=== PATIENT | male | born 1950 | race Caucasian/White ===

== ENCOUNTER 2020-09-29 14:54 | Emergency (ER) | payer OTHER, MEDICARE, SELFPAY ==
[2020-09-29 16:42] VITALS: BP 150/92; PULSE 80; RESP 17; TEMP 36.6; O2SAT 99; BMI 25.8
--- NOTE | 2020-09-29 17:48 | PC.NURSE ---
PT STATES IS GOING TO LEAVE. HE DOES NOT WANT TO WAIT. I AM FINE BUT I JUST WANT SOMONE TO TELL ME THAT. PT ENCOURAGED TO STAY. RYLIE NOTIFIED. PT WILLING TO WAIT FOR 5 MINUTES OTHERWISE WILL LEAVE.
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
== END 2020-09-29 19:00 | disposition home or self-care (01) ==
PROVIDERS: Emergency Provider Emergency Medicine
DX: S80.212A Abrasion, left knee, initial encounter (principal); M25.562 Pain in left knee; M54.5 Low back pain; V43.52XA Car driver injured in collision with other type car in traffic accident, initial encounter; Y93.9 Activity, unspecified; Y92.410 Unspecified street and highway as the place of occurrence of the external cause; Y99.9 Unspecified external cause status
CPT/HCPCS: 99283; 99284

== ENCOUNTER 2022-10-23 14:13 | Emergency (ER) | payer MEDICARE, SELFPAY ==
[2022-10-23 14:17] VITALS: BP 127/96; PULSE 92; RESP 18; TEMP 36.9; O2SAT 96; BMI 25.8
--- NOTE | 2022-10-23 14:20 | ED.SKABFB ---
HPI - Skin/Abscess/Foreign Bdy General Chief complaint: Eye Problems <Mavis Smith NP - Last Filed: 10/23/22 14:22> Stated complaint: Eye swelling/Shingles? <Mavis Smith NP - Last Filed: 10/23/22 14:22> Time Seen by Provider: 10/23/22 16:12 <Mavis Smith NP - Last Filed: 10/23/22 14:22> Source: patient <MERRITT Rizzo - Last Filed: 10/23/22 18:39> Mode of arrival: ambulatory <MERRITT Rizzo Last Filed: 10/23/22 18:39> Limitations: no limitations <MERRITT Rizzo Last Filed: 10/23/22 18:39> History of Present Illness HPI narrative: 730 minutes presents to ED for 4 days of warmth rash on forehead, scalp, and right side of face. Patient states having chills. Denies any eye pain or change in vision. Patient states he has a small scab back of his hand on occipital which she scratched and then the redness spread. <MERRITT Rizzo Last Filed: 10/23/22 18:39> Related Data Home medications: Previous Rx's Medication Instructions Recorded cephalexin 500 mg capsule 500 mg PO QID 7 days #28 caps 10/23/22 doxycycline hyclate 100 mg capsule 100 mg PO BID 7 days #14 caps 10/23/22 <Mavis Smith NP - Last Filed: 10/23/22 14:22> Allergies/Adverse reactions: Allergies Allergy/AdvReac Type Severity Reaction Status Date / Time aspirin [ASA] Allergy Mild Hives Verified 09/29/20 16:40 ibuprofen Allergy Hives Verified 09/29/20 16:41 <Mavis Smith NP - Last Filed: 10/23/22 14:22> Review of Systems Review of Systems: Hot rash on face <MERRITT Rizzo Last Filed: 10/23/22 18:39> Yes all other systems are reviewed and are negative <MERRITT Rizzo Last Filed: 10/23/22 18:39> PMFSH Past Medical History Surgical History: Surgical History History of bladder surgery <Mavis Smith NP - Last Filed: 10/23/22 14:22> Social History Social History: Social History Alcohol intake: unknown Advance Directives: No Advance Directives Information Provided: Yes <Mavis Smith NP - Last Filed: 10/23/22 14:22> Physical Exam Vital Signs: Vital Signs: Last Vital Signs Temp 98.5 F 10/23/22 14:17 Pulse 92 10/23/22 14:17 Resp 18 10/23/22 14:17 BP 127/96 H 10/23/22 14:17 Pulse Ox 96 10/23/22 14:17 O2 Del Method 10/23/22 14:17 BMI result Body Mass Index 25.8 <Mavis Smith NP - Last Filed: 10/23/22 14:22> Vital Signs: Last Vital Signs Temp 98.5 F 10/23/22 14:17 Pulse 92 10/23/22 14:17 Resp 18 10/23/22 14:17 BP 127/96 H 10/23/22 14:17 Pulse Ox 96 10/23/22 14:17 O2 Del Method 10/23/22 14:17 BMI result Body Mass Index 25.8 <MERRITT Rizzo - Last Filed: 10/23/22 18:39> Const: General: cooperative, healthy appearing, comfortable, no acute distress, well developed and alert <MERRITT Rizzo - Last Filed: 10/23/22 18:39> Orientation/consciousness: oriented to person, oriented to place, oriented to time and patient oriented x3 <MERRITT Rizzo - Last Filed: 10/23/22 18:39> HEENT: Other: Warm to touch. Patient has complete movement of eye muscles in all directions with no pain in both eyes. <MERRITT Rizzo - Last Filed: 10/23/22 18:39> Eyes: Other: Right: Lower eyelid swelling. Patient's complete movement of the eye muscles without any pain. Negative any visual changes Left eye normal <MERRITT Rizzo - Last Filed: 10/23/22 18:39> Neck: Neck: Yes normal visual inspection, Yes full ROM, Yes no lymphadenopathy, Yes no meningeal signs, Yes trachea midline, Yes supple, No anterior neck swelling and No tender <MERRITT Rizzo Last Filed: 10/23/22 18:39> Chest: Chest palpation & inspection: normal inspection of the chest and normal palpation of entire chest wall <MERRITT Rizzo Last Filed: 10/23/22 18:39> Resp: Effort & Inspection: normal respiratory effort and able to speak in complete sentences <MERRITT Rizzo Last Filed: 10/23/22 18:39> Auscultation: clear to auscultation bilaterally <MERRITT Rizzo Last Filed: 10/23/22 18:39> Cardio: Jugular venous distension: no JVD <MERRITT Rizzo Last Filed: 10/23/22 18:39> Heart sounds: S1 normal heart sound present and S2 normal heart sound present <MERRITT Rizzo Last Filed: 10/23/22 18:39> GI: Inspection: Yes normal to inspection and No abdominal wall ecchymosis <MERRITT Rizzo Last Filed: 10/23/22 18:39> Palpation (GI): Soft to palpation, not firm, nontender, no guarding and not rigid <MERRITT Rizzo Last Filed: 10/23/22 18:39> : General: No CVA tenderness and Yes no CVA tenderness <MERRITT Rizzo Last Filed: 10/23/22 18:39> Back/Spine/Pelvis: Back: no CVA tenderness, No CVA tenderness and No back tenderness <MERRITT Rizzo Last Filed: 10/23/22 18:39> Skin: General skin exam: no rashes or lesions noted and elasticity normal <MERRITT Rizzo Last Filed: 10/23/22 18:39> Neuro: Other: Negative for any neuro deficits <MERRITT Rizzo Last Filed: 10/23/22 18:39> General: oriented to person, oriented to place, oriented to time, patient oriented x3, gait normal, moves all extremities, Normal light touch and pain sensation and no meningeal signs <MERRITT Rizzo Last Filed: 10/23/22 18:39> Cranial nerves: Yes CN's II-XII intact bilaterally and Yes Facial sensation intact/muscles of mastication intact <MERRITT Rizzo - Last Filed: 10/23/22 18:39> Extrem: General: Yes normal to inspection and Yes full ROM <MERRITT Rizzo - Last Filed: 10/23/22 18:39> Psych: Appearance: grossly normal, well kempt and not disheveled <MERRITT Rizzo - Last Filed: 10/23/22 18:39> Course Course Course Narrative: This is a rapid medical exam. Deferred additional HPI, ROS, PE to primary provider. 72 yo male here with facial rash. Monday night developed flu like symptoms, burning over face/head then rash developed, worsening and spreading over the face down to the right eye now. No vision changes. VSS <Mavis Smith NP - Last Filed: 10/23/22 14:22> Reevaluation(s) Reevaluation #1: History physical exam does not indicate shingles. History physical exam indicate facial cellulitis. History physical exam does not indicate over cellulitis. Jasbir Higgins also evaluated patient recommend IV antibiotics and discharged with p.o. antibiotics <MERRITT Rizzo - Last Filed: 10/23/22 18:39> Time: 17:19 <MERRITT Rizzo - Last Filed: 10/23/22 18:39> Medications Administered Discontinued Medications Generic Name Dose Route Start Last Admin Trade Name Freq PRN Reason Stop Dose Admin Ceftriaxone Sodium 1 gm/ 50 mls @ 100 mls/hr 10/23/22 16:34 10/23/22 17:43 Sodium Chloride IV 10/23/22 17:03 Infused ONCE ONE Infusion <Mavis Smith NP - Last Filed: 10/23/22 14:22> Medications Administered Discontinued Medications Generic Name Dose Route Start Last Admin Trade Name Freq PRN Reason Stop Dose Admin Ceftriaxone Sodium 1 gm/ 50 mls @ 100 mls/hr 10/23/22 16:34 10/23/22 17:43 Sodium Chloride IV 10/23/22 17:03 Infused ONCE ONE Infusion <MERRITT Rizzo Last Filed: 10/23/22 18:39> MDM - Skin/Abscess/Foreign Bdy MDM Narrative Medical decision making narrative: Cellulitis <MERRITT Rizzo - Last Filed: 10/23/22 18:39> Lab Data Result diagrams: : 10/23/22 14:53 10/23/22 14:53 <Mavis Smith NP - Last Filed: 10/23/22 14:22> Labs: Lab Results 10/23/22 10/23/22 10/23/22 Range/Units 14:53 14:53 14:53 WBC 9.2 (4.8-10.8) X10*3/uL RBC 4.82 (4.60-5.80) X10*6/uL Hgb 13.9 L (14.0-18.0) g/dl Hct 41.1 L (42.0-52.0) % MCV 85.3 (80.0-98.0) fL MCH 28.8 (27.0-33.0) pg MCHC 33.8 (31.0-36.0) g/dl RDW 12.4 (11.0-16.0) % Plt Count 168 (160-400) X10*3/uL MPV 10.0 (9.4-12.4) fL Immature Gran % (Auto) 0.4 (0.0-0.4) % Neut % (Auto) 78.0 H (45-73) % Lymph % (Auto) 10.3 L (20-40) % Winkler % (Auto) 10.2 (2-11) % Eos % (Auto) 0.8 (0-4) % Baso % (Auto) 0.3 (0-2) % Lymph # (Auto) 0.9 L (1.2-4.9) X10*3/uL Winkler # (Auto) 0.9 (0.1-1.2) X10*3/uL Eos # (Auto) 0.1 (0.0-0.4) X10*3/uL Baso # (Auto) 0.0 (0.0-0.2) X10*3/uL Abs Immat Gran (auto) 0.04 H (0.00-0.03) X10*3/uL Absolute Neuts (auto) 7.1 (2.0-8.3) x10*3/uL Absolute Nucleated RBC 0.000 (0.0-0.012) X10*3/uL Nucleated RBC % (auto) 0.0 (0.0-0.2) /100WBC ESR 36 H (0-15) MM/HR Sodium 133 L (135-145) mmol/L Potassium 3.9 (3.3-5.1) mmol/L Chloride 101 (96-108) mmol/L Carbon Dioxide 27 (22-29) mmol/L Anion Gap 9 L (12-20) BUN 18 H (9-16) mg/dL Creatinine 1.36 (0.5-1.4) mg/dL Estim Creat Clear Calc 43.6 Estimated GFR 51 Random Glucose 129 H (60-115) mg/dL Lactic Acid (0.5-2.0) mmol/L Calcium 8.7 (8.4-10.2) mg/dL Total Bilirubin 0.8 (0.0-1.0) mg/dL Direct Bilirubin 0.3 (0.0-0.5) mg/dL AST 48 H (5-37) U/L ALT 75 H (0-40) U/L Alkaline Phosphatase 72 (39-117) U/L C-Reactive Protein 12.91 H (< or = 0.50) mg/dL Total Protein 6.3 L (6.5-8.0) g/dL Albumin 3.6 (3.5-5.0) g/dL COVID-19 ([facility]) (Negative) COVID-19 Clin Com 10/23/22 10/23/22 Range/Units 14:53 16:52 WBC (4.8-10.8) X10*3/uL RBC (4.60-5.80) X10*6/uL Hgb (14.0-18.0) g/dl Hct (42.0-52.0) % MCV (80.0-98.0) fL MCH (27.0-33.0) pg MCHC (31.0-36.0) g/dl RDW (11.0-16.0) % Plt Count (160-400) X10*3/uL MPV (9.4-12.4) fL Immature Gran % (Auto) (0.0-0.4) % Neut % (Auto) (45-73) % Lymph % (Auto) (20-40) % Winkler % (Auto) (2-11) % Eos % (Auto) (0-4) % Baso % (Auto) (0-2) % Lymph # (Auto) (1.2-4.9) X10*3/uL Winkler # (Auto) (0.1-1.2) X10*3/uL Eos # (Auto) (0.0-0.4) X10*3/uL Baso # (Auto) (0.0-0.2) X10*3/uL Abs Immat Gran (auto) (0.00-0.03) X10*3/uL Absolute Neuts (auto) (2.0-8.3) x10*3/uL Absolute Nucleated RBC (0.0-0.012) X10*3/uL Nucleated RBC % (auto) (0.0-0.2) /100WBC ESR (0-15) MM/HR Sodium (135-145) mmol/L Potassium (3.3-5.1) mmol/L Chloride (96-108) mmol/L Carbon Dioxide (22-29) mmol/L Anion Gap (12-20) BUN (9-16) mg/dL Creatinine (0.5-1.4) mg/dL Estim Creat Clear Calc Estimated GFR Random Glucose (60-115) mg/dL Lactic Acid 1.1 (0.5-2.0) mmol/L Calcium (8.4-10.2) mg/dL Total Bilirubin (0.0-1.0) mg/dL Direct Bilirubin (0.0-0.5) mg/dL AST (5-37) U/L ALT (0-40) U/L Alkaline Phosphatase (39-117) U/L C-Reactive Protein (< or = 0.50) mg/dL Total Protein (6.5-8.0) g/dL Albumin (3.5-5.0) g/dL COVID-19 ([facility]) Negative (Negative) COVID-19 Clin Com See Note <Mavis Smith NP - Last Filed: 10/23/22 14:22> Lab Results 10/23/22 10/23/22 10/23/22 Range/Units 14:53 14:53 14:53 WBC 9.2 (4.8-10.8) X10*3/uL RBC 4.82 (4.60-5.80) X10*6/uL Hgb 13.9 L (14.0-18.0) g/dl Hct 41.1 L (42.0-52.0) % MCV 85.3 (80.0-98.0) fL MCH 28.8 (27.0-33.0) pg MCHC 33.8 (31.0-36.0) g/dl RDW 12.4 (11.0-16.0) % Plt Count 168 (160-400) X10*3/uL MPV 10.0 (9.4-12.4) fL Immature Gran % (Auto) 0.4 (0.0-0.4) % Neut % (Auto) 78.0 H (45-73) % Lymph % (Auto) 10.3 L (20-40) % Winkler % (Auto) 10.2 (2-11) % Eos % (Auto) 0.8 (0-4) % Baso % (Auto) 0.3 (0-2) % Lymph # (Auto) 0.9 L (1.2-4.9) X10*3/uL Winkler # (Auto) 0.9 (0.1-1.2) X10*3/uL Eos # (Auto) 0.1 (0.0-0.4) X10*3/uL Baso # (Auto) 0.0 (0.0-0.2) X10*3/uL Abs Immat Gran (auto) 0.04 H (0.00-0.03) X10*3/uL Absolute Neuts (auto) 7.1 (2.0-8.3) x10*3/uL Absolute Nucleated RBC 0.000 (0.0-0.012) X10*3/uL Nucleated RBC % (auto) 0.0 (0.0-0.2) /100WBC ESR 36 H (0-15) MM/HR Sodium 133 L (135-145) mmol/L Potassium 3.9 (3.3-5.1) mmol/L Chloride 101 (96-108) mmol/L Carbon Dioxide 27 (22-29) mmol/L Anion Gap 9 L (12-20) BUN 18 H (9-16) mg/dL Creatinine 1.36 (0.5-1.4) mg/dL Estim Creat Clear Calc 43.6 Estimated GFR 51 Random Glucose 129 H (60-115) mg/dL Lactic Acid (0.5-2.0) mmol/L Calcium 8.7 (8.4-10.2) mg/dL Total Bilirubin 0.8 (0.0-1.0) mg/dL Direct Bilirubin 0.3 (0.0-0.5) mg/dL AST 48 H (5-37) U/L ALT 75 H (0-40) U/L Alkaline Phosphatase 72 (39-117) U/L C-Reactive Protein 12.91 H (< or = 0.50) mg/dL Total Protein 6.3 L (6.5-8.0) g/dL Albumin 3.6 (3.5-5.0) g/dL COVID-19 ([facility]) (Negative) COVID-19 Clin Com 10/23/22 10/23/22 Range/Units 14:53 16:52 WBC (4.8-10.8) X10*3/uL RBC (4.60-5.80) X10*6/uL Hgb (14.0-18.0) g/dl Hct (42.0-52.0) % MCV (80.0-98.0) fL MCH (27.0-33.0) pg MCHC (31.0-36.0) g/dl RDW (11.0-16.0) % Plt Count (160-400) X10*3/uL MPV (9.4-12.4) fL Immature Gran % (Auto) (0.0-0.4) % Neut % (Auto) (45-73) % Lymph % (Auto) (20-40) % Winkler % (Auto) (2-11) % Eos % (Auto) (0-4) % Baso % (Auto) (0-2) % Lymph # (Auto) (1.2-4.9) X10*3/uL Winkler # (Auto) (0.1-1.2) X10*3/uL Eos # (Auto) (0.0-0.4) X10*3/uL Baso # (Auto) (0.0-0.2) X10*3/uL Abs Immat Gran (auto) (0.00-0.03) X10*3/uL Absolute Neuts (auto) (2.0-8.3) x10*3/uL Absolute Nucleated RBC (0.0-0.012) X10*3/uL Nucleated RBC % (auto) (0.0-0.2) /100WBC ESR (0-15) MM/HR Sodium (135-145) mmol/L Potassium (3.3-5.1) mmol/L Chloride (96-108) mmol/L Carbon Dioxide (22-29) mmol/L Anion Gap (12-20) BUN (9-16) mg/dL Creatinine (0.5-1.4) mg/dL Estim Creat Clear Calc Estimated GFR Random Glucose (60-115) mg/dL Lactic Acid 1.1 (0.5-2.0) mmol/L Calcium (8.4-10.2) mg/dL Total Bilirubin (0.0-1.0) mg/dL Direct Bilirubin (0.0-0.5) mg/dL AST (5-37) U/L ALT (0-40) U/L Alkaline Phosphatase (39-117) U/L C-Reactive Protein (< or = 0.50) mg/dL Total Protein (6.5-8.0) g/dL Albumin (3.5-5.0) g/dL COVID-19 ([facility]) Negative (Negative) COVID-19 Clin Com See Note <MERRITT Rizzo - Last Filed: 10/23/22 18:39> Discharge Plan Discharge Clinical Impression: Facial cellulitis <Mavis Smith NP - Last Filed: 10/23/22 14:22> Patient Disposition: Home, Self-Care <Mavis Smith NP - Last Filed: 10/23/22 14:22> Instructions: Cellulitis (ED) <Mavis Smith NP - Last Filed: 10/23/22 14:22> Additional Instructions: Return to the ED immediately worsening rash, fever, chills, eye pain, change in vision, neck swelling, headache, or any other concerning symptoms. Please follow-up primary care provider <Mavis Smith NP - Last Filed: 10/23/22 14:22> Prescriptions: New cephalexin 500 mg capsule 500 mg PO QID 7 Days Qty: 28 0RF doxycycline hyclate 100 mg capsule 100 mg PO BID 7 Days Qty: 14 0RF <Mavis Smith NP - Last Filed: 10/23/22 14:22> Interventions: ED Discharge Assessment Last Done: 10/23/22 18:23 <Mavis Smith NP - Last Filed: 10/23/22 14:22> Discharge Date/Time: 10/23/22 18:23 <Mavis Smith NP - Last Filed: 10/23/22 14:22> Print Language: Japanese <Mavis Smith NP - Last Filed: 10/23/22 14:22>
[2022-10-23 14:58] LABS: MANUAL DIFF FLAG NO
[2022-10-23 15:00] LABS: Basophils Percent Auto 0.3 % (0-2); Eosinophils Absolute Auto 0.1 X10*3/uL (0.0-0.4); Eosinophils Percent Auto 0.8 % (0-4); Hematocrit 41.1 % (42.0-52.0); Hemoglobin 13.9 g/dl (14.0-18.0); Imm Gran Abs Auto 0.04 X10*3/uL (0.00-0.03); Imm Gran Pct Auto 0.4 % (0.0-0.4); Lymphocytes Absolute Auto 0.9 X10*3/uL (1.2-4.9); Lymphocytes Percent Auto 10.3 % (20-40); Mean Corpuscular HGB Conc 33.8 g/dl (31.0-36.0); Mean Corpuscular Hemoglobin 28.8 pg (27.0-33.0); Mean Corpuscular Volume 85.3 fL (80.0-98.0); Monocytes Absolute Auto 0.9 X10*3/uL (0.1-1.2); Monocytes Percent Auto 10.2 % (2-11); Neutrophils Absolute Auto 7.1 x10*3/uL (2.0-8.3); Platelet Count 168 X10*3/uL (160-400); Red Blood Count 4.82 X10*6/uL (4.60-5.80); Red Cell Distribution Width 12.4 % (11.0-16.0); White Blood Count 9.2 X10*3/uL (4.8-10.8)
[2022-10-23 15:11] LABS: COVID-19 Test Negative (Negative); IDNOW Serial# BCCEAD1C
[2022-10-23 15:36] LABS: Alanine Aminotransferase 75 U/L (0-40); Albumin Level 3.6 g/dL (3.5-5.0); Alkaline Phosphatase 72 U/L (39-117); Anion Gap 9 (12-20); Aspartate Amino Transferase 48 U/L (5-37); Bilirubin Direct 0.3 mg/dL (0.0-0.5); Bilirubin Total 0.8 mg/dL (0.0-1.0); Blood Urea Nitrogen 18 mg/dL (9-16); C Reactive Protein 12.91 mg/dL (< or = 0.50); Calcium 8.7 mg/dL (8.4-10.2); Carbon Dioxide 27 mmol/L (22-29); Chloride 101 mmol/L (96-108); Creatinine Clr Calc Pharmacy 43.6; Erythrocyte Sedimentation Rate 36 MM/HR (0-15); Estimated Glomerular Filt Rate 51; Glucose Random 129 mg/dL (60-115); Potassium 3.9 mmol/L (3.3-5.1); Sodium 133 mmol/L (135-145); Total Protein 6.3 g/dL (6.5-8.0)
[2022-10-23] MEDS: cefTRIAXone sodium 1 GM in 0.9 % Sodium Chloride 50 ML IV (17:04)
--- NOTE | 2022-10-23 17:10 | PC.NURSE ---
20g iv placed in left antecubital- adm 1g rocephin per MAR- pt partner at bedside both updated on plan of care
[2022-10-23 17:12] LABS: Lactic Acid 1.1 mmol/L (0.5-2.0)
== END 2022-10-23 18:23 | disposition home or self-care (01) ==
PROVIDERS: Nurse Practitioner Family; Physician Assistant; Emergency Provider Internal Medicine
DX: L03.211 Cellulitis of face (principal); Z20.822 Contact with and (suspected) exposure to COVID-19; Z79.899 Other long term (current) drug therapy
CPT/HCPCS: 36415; 80048; 80076; 83605; 85025; 85652; 86140; 87040; 87635; 96374; 99284; J0696

== ENCOUNTER 2023-11-21 10:26 | Emergency (ER) | payer MEDICARE, SELFPAY ==
--- NOTE | ~2023-11-21 | CT_ITS ---
EXAMINATION: CT ABDOMEN AND PELVIS WITHOUT CONTRAST CLINICAL INFORMATION: Hematuria and left-sided flank pain. COMPARISON: None available. TECHNIQUE: Multidetector volumetric imaging was performed from the superior aspect of the liver through the pubic symphysis. Sagittal and coronal reformatted images were obtained on the technologist's workstation. This CT examination was performed using dose optimization techniques as appropriate, variously including the following: *Automated exposure control *Adjustment of mA and/or kV according to patient size (this includes techniques or standardized protocols for targeted exams where dose is matched to indication/reason for exam; i.e. extremities or head) *Use of iterative reconstruction technique DLP: 477 mGy-cm FINDINGS: LUNG BASES: No pulmonary consolidation or pleural effusion. HEPATOBILIARY: The liver has normal size, shape, and attenuation. Gallbladder has a single 2 cm peripherally calcified stone. No gallbladder wall thickening or pericholecystic fluid. No dilated bile ducts. PANCREAS: No edema, pancreatic ductal dilatation or mass. SPLEEN: Normal size. 0.7 cm hypodense focus in the posterior spleen could represent a cyst or hemangioma. ADRENAL GLANDS: Normal. RIGHT KIDNEY AND URETER: 3.2 cm simple cyst of the anterior mid kidney. No renal imaging follow-up is recommended for a simple cyst. No renal stones, hydronephrosis or perinephric edema. The ureter is unremarkable. LEFT KIDNEY AND URETER: No renal stones, hydronephrosis or perinephric edema. 1.5 cm simple cyst of the anterior upper pole. A simple cyst of the lower pole measures up to 10.5 cm maximum dimension. No renal imaging follow-up is recommended for simple cysts, if asymptomatic. The ureter is unremarkable. BLADDER: The bladder is underdistended, suboptimally evaluated. 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 Also, there is nonspecific intermediate attenuation in the posterior right bladder. In a patient with history of hematuria, this could represent clot within the bladder lumen although underlying urothelial polyp is not excluded. Consider whether either cystoscopy or CT urography evaluation is warranted for further evaluation. BOWEL AND PERITONEUM: Stomach is underdistended and grossly normal. No dilated bowel loops. The appendix is normal. Multiple diverticula of the colon, particularly descending and sigmoid colon, without evidence of diverticulitis. No abdominal free fluid or free air. ABDOMINAL WALL: Small fat-containing right inguinal hernia. VASCULATURE: There is atherosclerotic calcification of the abdominal aorta and iliac arteries without aneurysm. The infrarenal abdominal aorta measures up to 2.3 cm AP diameter. LYMPH NODES: No pathologic sized lymph nodes in the abdomen or pelvis. No inguinal lymphadenopathy. PELVIC VISCERA: Mildly enlarged prostate gland measures approximately 4.8 x 3.6 x 4.8 cm. MUSCULOSKELETAL: Mild facet arthropathy at L4-L5 and moderate facet arthropathy at L5-S1. Degenerative disc disease at L5-S1 (as manifest by severe loss of disc height, endplate sclerosis, osteophytosis and vacuum disc phenomenon). There are osteophytes that encroach upon the bilateral neural foramina at L5-S1. Correlate for any signs/symptoms of L5 radiculopathy. CT/CT abdomen pelvis wo IV con IMPRESSION: * No evidence of renal calculi or hydroureteronephrosis. * Simple cysts of both kidneys, largest on the left measuring up to 10.5 cm. * Large prostate gland measures approximately 4.8 x 3.6 x 4.8 cm. 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 The area of intermediate attenuation in the posterior right bladder is not well characterized, possibly representing clot or a polypoid urothelial lesion. Given history of hematuria, consider correlation with either cystoscopy or CT urography. * Cholelithiasis. * Colonic diverticulosis without diverticulitis.
[2023-11-21 11:16] VITALS: BP 177/90; PULSE 82; RESP 18; TEMP 36.7; O2SAT 98; BMI 25.1
--- NOTE | 2023-11-21 11:16 | ED_ITS ---
HPI - Male Genitourinary General Chief complaint: Urogenital-Male Stated complaint: Blood in urine Related Data Previous Rx's Medication Instructions Recorded cephalexin 500 mg capsule 500 mg PO QID 7 days #28 caps 10/23/22 doxycycline hyclate 100 mg capsule 100 mg PO BID 7 days #14 caps 10/23/22 Allergies Allergy/AdvReac Type Severity Reaction Status Date / Time aspirin [ASA] Allergy Mild Hives Verified 09/29/20 16:40 ibuprofen Allergy Hives Verified 09/29/20 16:41 PMFSH Past Medical History Onset Date is defined in the Problem List Problems that require an onset date and time if occurred within 24 hrs of arrival to the ED Aortic Dissection and Rupture; Neurologic impairment; Cardiopulmonary Arrest; Endotracheal Intubation; Insertion or Replacement of Mechanical Circulatory Assist Device Surgical History History of bladder surgery Social History Social History Alcohol intake: unknown Advance Directives: No Advance Directives Information Provided: No Physical Exam 2 Vital Signs: Vital Signs: Last Vital Signs Temp 98.0 F 11/21/23 11:16 Pulse 82 11/21/23 11:16 Resp 18 11/21/23 11:16 BP 177/90 H 11/21/23 11:16 Pulse Ox 98 11/21/23 11:16 O2 Del Method Room Air 11/21/23 11:16 BMI result Body Mass Index 25.1 Course Course Course Narrative: This is an RME: Additional HPI, ROS, PE not included below will be deferred to primary provider. This is a [id number], hx of bladder growth that was removed several years ago, presenting to the ER with complaints of hematuria x 2 days. Reporting some left sided flank pain. No fevers, N/V. VSS. Further ER evaluation needed. Plan: Labs, UA, CT abd/pelvis Reevaluation(s) Reevaluation #1: pt eloped prior to completing treatment. Medical Decision Making Lab Data 11/21/23 12:15 11/21/23 12:15 Labs: Lab Results 11/21/23 Range/Units 12:15 WBC 8.4 (4.8-10.8) X10*3/uL RBC 4.94 (4.60-5.80) X10*6/uL Hgb 14.5 (14.0-18.0) g/dl Hct 42.5 (42.0-52.0) % MCV 86.0 (80.0-98.0) fL MCH 29.4 (27.0-33.0) pg MCHC 34.1 (31.0-36.0) g/dl RDW 12.8 (11.0-16.0) % Plt Count 196 (160-400) X10*3/uL MPV 9.7 (9.4-12.4) fL Immature Gran % (Auto) 0.4 (0.0-0.4) % Neut % (Auto) 83.9 H (45-73) % Lymph % (Auto) 8.7 L (20-40) % Atkinson % (Auto) 6.4 (2-11) % Eos % (Auto) 0.4 (0-4) % Baso % (Auto) 0.2 (0-2) % Lymph # (Auto) 0.7 L (1.2-4.9) X10*3/uL Atkinson # (Auto) 0.5 (0.1-1.2) X10*3/uL Eos # (Auto) 0.0 (0.0-0.4) X10*3/uL Baso # (Auto) 0.0 (0.0-0.2) X10*3/uL Abs Immat Gran (auto) 0.03 (0.00-0.03) X10*3/uL Absolute Neuts (auto) 7.1 (2.0-8.3) x10*3/uL Absolute Nucleated RBC 0.000 (0.0-0.012) X10*3/uL Nucleated RBC % (auto) 0.0 (0.0-0.2) /100WBC Sodium 141 (135-145) mmol/L Potassium 4.9 D (3.3-5.1) mmol/L Chloride 109 H (96-108) mmol/L Carbon Dioxide 23 (22-29) mmol/L Anion Gap 14 (12-20) BUN 15 (9-16) mg/dL Creatinine 1.23 (0.5-1.4) mg/dL Estim Creat Clear Calc 50.9 Estimated GFR 58 Random Glucose 98 (60-115) mg/dL Calcium 9.4 D (8.4-10.2) mg/dL Total Bilirubin 0.3 (0.0-1.0) mg/dL Direct Bilirubin 0.1 (0.0-0.5) mg/dL AST 20 (5-37) U/L ALT 13 (0-40) U/L Alkaline Phosphatase 51 (39-117) U/L Total Protein 7.7 (6.5-8.0) g/dL Albumin 4.5 (3.5-5.0) g/dL Lipase 27 (8-78) U/L Urine Color BROWN Urine Appearance Turbid Urine pH 6.5 (5.0-9.0) Ur Specific [place] 1.020 (1.005-1.025) Urine Protein 300 (3+) H (Neg-Trace) mg/dL Urine Glucose (UA) Negative (Negative) mg/dL Urine Ketones Trace (Negative) mg/dL Urine Blood Large (3+) H (Negative) Urine Nitrite Positive H (Negative) Ur Leukocyte Esterase Trace H (Negative) Urine RBC >20 H (0-2) /HPF Urine WBC 11-20 H (0-5) /HPF Ur Squamous Epith Cells 11-20 (0-2) /HPF Urine Bacteria None Seen (None Seen) Hyaline Casts 0-2 (0-2) /LPF Discharge Plan Discharge Clinical Impression: Hematuria Patient Disposition: Left W/O Completing Treatment Prescriptions: No Action cephalexin 500 mg capsule 500 mg PO QID 7 Days Qty: 28 0RF doxycycline hyclate 100 mg capsule 100 mg PO BID 7 Days Qty: 14 0RF Discharge Date/Time: 11/21/23 16:34
[2023-11-21 12:20] LABS: MANUAL DIFF FLAG NO
[2023-11-21 12:21] LABS: Basophils Percent Auto 0.2 % (0-2); Eosinophils Percent Auto 0.4 % (0-4); Hematocrit 42.5 % (42.0-52.0); Hemoglobin 14.5 g/dl (14.0-18.0); Imm Gran Abs Auto 0.03 X10*3/uL (0.00-0.03); Imm Gran Pct Auto 0.4 % (0.0-0.4); Lymphocytes Absolute Auto 0.7 X10*3/uL (1.2-4.9); Lymphocytes Percent Auto 8.7 % (20-40); Mean Corpuscular HGB Conc 34.1 g/dl (31.0-36.0); Mean Corpuscular Hemoglobin 29.4 pg (27.0-33.0); Mean Platelet Volume 9.7 fL (9.4-12.4); Monocytes Absolute Auto 0.5 X10*3/uL (0.1-1.2); Monocytes Percent Auto 6.4 % (2-11); Neutrophils Absolute Auto 7.1 x10*3/uL (2.0-8.3); Neutrophils Percent Auto 83.9 % (45-73); Platelet Count 196 X10*3/uL (160-400); Red Blood Count 4.94 X10*6/uL (4.60-5.80); Red Cell Distribution Width 12.8 % (11.0-16.0); White Blood Count 8.4 X10*3/uL (4.8-10.8)
[2023-11-21 12:22] LABS: Appearance Urine Turbid; Color Urine BROWN; Glucose Urine UA Negative (Negative); Leukocyte Esterase Urine Trace (Negative); Nitrite Urine Positive (Negative); PH 6.5 (5.0-9.0); UMIC TRIGGER UACC YES; Urine Blood Large (3+) (Negative); Urine Ketones Trace mg/dL (Negative); Urine Protein 300 (3+) mg/dL (Neg-Trace)
[2023-11-21 12:25] LABS: Bacteria Urine None Seen (None Seen); Hyaline Casts Urine 0-2 /LPF (0-2); RBC Urine >20 /HPF (0-2); UACC Culture Trigger YES
[2023-11-21 12:36] LABS: Alanine Aminotransferase 13 U/L (0-40); Albumin Level 4.5 g/dL (3.5-5.0); Alkaline Phosphatase 51 U/L (39-117); Anion Gap 14 (12-20); Aspartate Amino Transferase 20 U/L (5-37); Bilirubin Direct 0.1 mg/dL (0.0-0.5); Bilirubin Total 0.3 mg/dL (0.0-1.0); Blood Urea Nitrogen 15 mg/dL (9-16); Calcium 9.4 mg/dL (8.4-10.2); Carbon Dioxide 23 mmol/L (22-29); Chloride 109 mmol/L (96-108); Creatinine Clr Calc Pharmacy 50.9; Estimated Glomerular Filt Rate 58; Glucose Random 98 mg/dL (60-115); Lipase 27 U/L (8-78); Potassium 4.9 mmol/L (3.3-5.1); Sodium 141 mmol/L (135-145); Total Protein 7.7 g/dL (6.5-8.0)
== END 2023-11-21 16:34 | disposition left against medical advice (07) ==
PROVIDERS: Physician Assistant Medical; Emergency Provider Emergency Medicine
DX: R31.9 Hematuria, unspecified (principal); R10.9 Unspecified abdominal pain
CPT/HCPCS: 36415; 74176; 80048; 80076; 81001; 83690; 85025; 87086; 99282; 99284